=== PATIENT | female | born 1960 | race Caucasian/White ===

== ENCOUNTER 2018-12-11 09:57 | Emergency (ER) | payer BC ==
--- NOTE | 2018-12-11 10:43 | Emergency Department Record ---
History of Present Illness - General Chief Complaint: Headache Migraine Stated Complaint: HEADACHE Time Seen by Provider: 12/11/18 10:21 Source: Patient Mode of Arrival: Ambulatory Limitations: No limitations - History of Present Illness Initial Comments: The patient is here due to a one day hx of a throbbing global CASTANEDA. The onset was yesterday and the pain has been gradually worsening. Today the patient feels that her neck is stiff and she does have mild photophobia. There has been no reported confusion, falls, or fevers. The patient recently had a 3 months stay at [facility] for Pneumococcal Meningitis and was discharged on Nov 06. She was initially found in a coma and was in the ICU for an extended stay. While admitted she was diagnosed with intermittent Afib and presently is on Eliquis. MD Complaint: Headache Onset/Timin -: Days(s) Onset Description: Gradual Location: Diffuse Severity: Moderate Severity scale (1-10): 10 Quality: Throbbing Consistency: Constant Improves With: Nothing Worsens With: Light Associated Symptoms: Photophobia Treatments Prior to Arrival: Ibuprofen Treatment Prior to Arrival Comment:: 400 mg advil. - Related Data Home Medications Medication Instructions Recorded Confirmed Last Taken Apixaban [Eliquis] 5 mg PO BID 12/11/18 12/11/18 12/11/18 Metoprolol Tartrate [Lopressor] 12/11/18 12/11/18 12/11/18 Ondansetron [Zofran Odt] 12/11/18 12/11/18 Pantoprazole Sodium [Protonix] 40 mg PO DAILY 12/11/18 12/11/18 12/11/18 Sertraline HCl [Zoloft] 100 mg PO DAILY 12/11/18 12/11/18 12/11/18 Tiotropium Br/Olodaterol HCl 4 gm IH DAILY 12/11/18 12/11/18 12/11/18 [Stiolto Respimat Inhal [place]] Allergies Allergy/AdvReac Type Severity Reaction Status Date / Time Penicillins Allergy Intermediate hives Verified 12/11/18 10:04 Sulfa (Sulfonamide Allergy Intermediate hives Verified 12/11/18 10:04 Antibiotics) Travel Screening - Travel/Exposure Within Last 30 Days Have you traveled within the last 30 days?: No - Travel/Exposure Within Last Year Have you traveled outside the [place] in the last year?: No - Additonal Travel Details Have you been exposed to anyone with a communicable illness?: No - Travel Symptoms Symptom Screening: None Review of Systems Constitutional: Reports: Malaise. Denies: Chills, Fever Eyes: Denies: Eye discharge ENT: Denies: Congestion Respiratory: Denies: Cough Cardiovascular: Denies: Arrhythmia Endocrine: Reports: Fatigue Gastrointestinal: Denies: Nausea Genitourinary: Denies: Dysuria Musculoskeletal: Denies: Arthralgia Skin: Denies: Bruising Past Medical History - SOCIAL HISTORY Smoking Status: Former smoker Alcohol Use: Occasional Drug Use: None - RESPIRATORY Hx Respiratory Disorders: Yes Hx COPD: Yes - CARDIOVASCULAR Hx Cardio Disorders: Yes Hx Hypertension: Yes - NEURO Hx Neuro Disorders: Yes Comment:: Recent meningitis - GI Hx GI Disorders: Yes Hx Reflux: Yes - Hx Genitourinary Disorders: No - ENDOCRINE Hx Endocrine Disorders: Yes Hx Diabetes: Yes - MUSCULOSKELETAL Hx Musculoskeletal Disorders: No - PSYCH Hx Psych Problems: No - HEMATOLOGY/ONCOLOGY Hx Hematology/Oncology Disorders: No Family Medical History Any Significant Family History?: Yes Hx Cancer: Father Hx Resp Disorders: Mother Physical Exam - General General Appearance: Alert, Oriented x3, Cooperative, No acute distress - Head Head exam: Atraumatic, Normocephalic, Normal inspection - Eye Eye exam: Normal appearance, PERRL, EOMI - ENT Throat exam: Normal inspection. negative: Tonsillar erythema, Tonsillar exudate - Neck Neck exam: Normal inspection, Full ROM. negative: Lymphadenopathy, Meningismus (There is a neg Kerng's and Brudsinski's exams.), Tenderness - Respiratory Respiratory exam: Normal lung sounds bilaterally. negative: Respiratory distress - Cardiovascular Cardiovascular Exam: Regular rate, Normal rhythm, Normal heart sounds - GI/Abdominal GI/Abdominal exam: Soft, Normal bowel sounds. negative: Tenderness - Extremities Extremities exam: Normal inspection, Full ROM, Normal capillary refill. negative: Tenderness - Neurological Neurological exam: Alert, Normal gait. negative: Abnormal gait, Motor sensory deficit - Psychiatric Psychiatric exam: Flat affect. negative: Anxious - Skin Skin exam: negative: Rash Course Vital Signs 12/11/18 10:11 Temperature 98.1 F Pulse Rate 63 Respiratory 20 Rate Blood Pressure 157/63 Pulse Ox 98 - Reevaluation(s) Reevaluation #1: The patient is doing better at this time and states her pain is improved. I did discuss the issues with her care and the fact she needs an LP to R/O meningitis but due to taking Eliquis we are not able to perform that test. Due to her recent bout of Strep Meningitis I did recommend hospital admission for IV Abx's and holding the blood thinner and having the LP in 1-2 days. The patient agrees to that plan and would like to go back to [facility]. I then did discuss the case with Dr. Jennings at [facility] and she does accept the patient for admission. 12/11/18 12:20 Medical Decision Making - Data Complexity MDM Data: EKG Ordered and/or Reviewed - Lab Data Result diagrams: 12/11/18 10:50 12/11/18 10:50 - EKG Data -: EKG Interpreted by Me EKG: No Acute Changes (Prolonged QT interval. Neg for ischemic changes.) Disposition Disposition: Transfer Clinical Impression: Headache Qualifiers: Headache type: unspecified Headache chronicity pattern: acute headache Intractability: not intractable Qualified Code(s): R51 - Headache Disposition: Acute Care Hospital Transfer Transfer To: [facility] Reason For Transfer: Neurology Accepting Physician: Dick Time Discussed w/Accepting Physician: 12:23 Condition: (2) Stable Forms: Patient Portal Access Time of Disposition: 12:23 Quality - Quality Measures Quality Measures: N/A - Blood Pressure Screening View Details: Yes Does Patient Have Any of the Following: No Blood Pressure Classification: Hypertensive Reading Systolic Measurement: 157 Diastolic Measurement: 63 Screening for High Blood Pressure: < First Hypertensive BP, F/U Documented > [ G8950] First Hypertensive Follow-up Interventions: Referral to alternative/primary care provider.
[2018-12-11] MEDS ORDERED: ACETAMINOPHEN 1,000 MG/100 ML BTL IVPB ONE (11:02)
[2018-12-11 11:08] LABS: BASO % 0.9 % (0-6); GRAN % 50.5 % (47-80); HEMATOCRIT 34.3 % (35.0-47.0); HEMOGLOBIN 11.1 gm/dl (11.6-16.0); LYMPH % 40.1 % (16-45); MEAN CELL VOLUME 83.9 fl (81-97); MEAN CORPUSCULAR HEMOGLOBIN 27.1 pg (27-33); MEAN CORPUSCULAR HGB CONC 32.4 g/dl (32-36); MEAN PLATELET VOLUME 10.7 fl (7.4-10.4); MONO % 7.5 % (0-9); PLATELET COUNT 232 K/uL (130-400); RED BLOOD COUNT 4.09 M/uL (3.80-5.40); WHITE BLOOD COUNT W/O DIFF 8.7 K/uL (4.2-12.2)
[2018-12-11 11:18] LABS: BLOOD UREA NITROGEN 11 mg/dL (8-23)
[2018-12-11 11:19] LABS: CREATININE 0.4 mg/dL (0.5-0.9); EST GLOMERULAR FILTRATION RATE > 60 mL/min; TOTAL PROTEIN 6.8 g/dL (6.6-8.7)
[2018-12-11 11:20] LABS: INR 1.1; PARTIAL THROMBOPLASTIN TIME 30.2 SECONDS (24.5-39.1); PROTHROMBIN TIME (PATIENT) 10.6 SECONDS (9.5-12.1)
[2018-12-11 11:21] LABS: GLUCOSE,RANDOM 106 mg/dL (74-109)
[2018-12-11 11:24] LABS: ALBUMIN 4.5 g/dL (4.0-5.0); ALKALINE PHOSPHATASE 53 U/L (35-104); ALT/SGPT 13 U/L (<33); AST/SGOT 14 U/L (10.0-35.0)
[2018-12-11] MEDS ORDERED: POTASSIUM CHLORIDE 20 MEQ TABLET PO ONE (11:26)
[2018-12-11 11:45] LABS: C-REACTIVE PROTEIN 0.08 mg/dL (<0.5)
[2018-12-11] MEDS ORDERED: CEFTRIAXONE SODIUM 2 GM in 0.9 % SODIUM CHLORIDE 100ML 100 ML IVPB ONE (12:18)
[2018-12-11] MEDS ORDERED: DEXAMETHASONE SOD PHOSPHATE 10MG/ML VIAL IVP ONE (12:18)
--- NOTE | 2018-12-13 06:49 | CT SCAN REPORT ---
DATE: 12/11/2018. EXAM: CT OF THE BRAIN WITHOUT CONTRAST. HISTORY: Headache. TECHNIQUE: Sequential axial images were obtained from the foramen magna to the vertex without contrast administration. FINDINGS: Brain volume is normal. No large territorial infarct, hemorrhage, mass effect, or midline shift. No extra-axial fluid collection. The orbits, paranasal sinuses, and mastoid air cells are normal. No depressed skull fracture. IMPRESSION: NO ACUTE INTRACRANIAL ABNORMALITIES APPRECIATED. Job Number: [id number] MTDD
--- NOTE | 2018-12-13 06:51 | RADIOLOGY REPORT ---
DATE: 12/11/2018. EXAM: TWO-VIEW CHEST. HISTORY: Difficulty breathing. TECHNIQUE: Frontal and lateral views of the chest were performed. FINDINGS: Heart size is upper limits of normal. No pulmonary vascular congestion. No infiltrate or pleural effusion. The osseus structures are normal. IMPRESSION: HEART SIZE IS UPPER LIMITS OF NORMAL. NO ACUTE PROCESS. Job Number: [id number] MTDD
== END 2018-12-11 15:28 | disposition short-term general hospital (02) ==
LOC: ER 09:57
DX: R51 Headache (principal); M43.6 Torticollis; H53.149 Visual discomfort, unspecified; I10 Essential (primary) hypertension; I48.91 Unspecified atrial fibrillation; Z79.01 Long term (current) use of anticoagulants; E11.9 Type 2 diabetes mellitus without complications; Z79.84 Long term (current) use of oral hypoglycemic drugs; Z87.891 Personal history of nicotine dependence
CPT/HCPCS: 99285 ×2; 96365; 96366; 96375; 85025; 85730; 85610; 86140; 80053; 84145; 71046; 70450; 93005; 93010; J1100

== ENCOUNTER 2018-12-21 00:08 | Emergency (ER) | payer BC ==
[2018-12-21] MEDS ORDERED: ONDANSETRON HCL IV 4 MG/2 ML VIAL IVP ONE (00:14)
[2018-12-21] MEDS ORDERED: FUROSEMIDE IV 40MG/4ML VIAL IVP ONE (00:16)
[2018-12-21 00:30] LABS: BLOOD UREA NITROGEN 16 mg/dL (8-23); CREATININE 0.7 mg/dL (0.5-0.9); EST GLOMERULAR FILTRATION RATE > 60 mL/min; TOTAL PROTEIN 7.2 g/dL (6.6-8.7)
[2018-12-21 00:32] LABS: GLUCOSE,RANDOM 142 mg/dL (74-109)
[2018-12-21 00:35] LABS: ALB/GLOB RATIO 1.5 (1.1-1.8); ALBUMIN 4.3 g/dL (4.0-5.0); ALKALINE PHOSPHATASE 64 U/L (35-104); ALT/SGPT 19 U/L (<33); AST/SGOT 22 U/L (10.0-35.0); CREATINE PHOSPHOKINASE 79 U/L (26-192)
[2018-12-21 00:37] LABS: CKMB 1.5 ng/mL (<3.77)
[2018-12-21 00:45] LABS: HEMATOCRIT 41.6 % (35.0-47.0); HEMOGLOBIN 12.6 gm/dl (11.6-16.0); MEAN CELL VOLUME 90.4 fl (81-97); MEAN CORPUSCULAR HEMOGLOBIN 27.4 pg (27-33); MEAN CORPUSCULAR HGB CONC 30.3 g/dl (32-36); MEAN PLATELET VOLUME 10.8 fl (7.4-10.4); PLATELET COUNT 321 K/uL (130-400); RED CELL DISTRIBUTION WIDTH 14.9 % (11.5-14.5); WHITE BLOOD COUNT W/O DIFF 27.8 K/uL (4.2-12.2)
[2018-12-21 00:58] LABS: INR 1.1; PARTIAL THROMBOPLASTIN TIME 26.7 SECONDS (24.5-39.1); PROTHROMBIN TIME (PATIENT) 10.9 SECONDS (9.5-12.1)
--- NOTE | 2018-12-21 00:58 | Emergency Department Record ---
History of Present Illness - General Chief Complaint: Shortness of breath Stated Complaint: PATRICIA Time Seen by Provider: 12/21/18 00:14 Source: Family Mode of Arrival: Ambulatory Limitations: No limitations - History of Present Illness Initial Comments: The patient presented with severe PATRICIA for the last 2 day which got worse in the last few hours. The patient has a hx of an extended stay at [facility] for Meningitis which ended 6 weeks ago. There is no recent hx of cough, fever, or pain. MD Complaint: Shortness of breath Onset/Timin -: Days(s) - Related Data Allergies Allergy/AdvReac Type Severity Reaction Status Date / Time Penicillins Allergy Intermediate hives Verified 12/11/18 10:04 Sulfa (Sulfonamide Allergy Intermediate hives Verified 12/11/18 10:04 Antibiotics) Review of Systems ROS unobtainable: Due to endotracheal tube, Due to mental status Past Medical History - SOCIAL HISTORY Smoking Status: Former smoker Drug Use: None - RESPIRATORY Hx Respiratory Disorders: Yes Hx COPD: Yes - CARDIOVASCULAR Hx Cardio Disorders: Yes Hx Hypertension: Yes - NEURO Hx Neuro Disorders: Yes Comment:: Recent meningitis - GI Hx GI Disorders: Yes Hx Reflux: Yes - Hx Genitourinary Disorders: No - ENDOCRINE Hx Endocrine Disorders: Yes Hx Diabetes: Yes - MUSCULOSKELETAL Hx Musculoskeletal Disorders: No - PSYCH Hx Psych Problems: No - HEMATOLOGY/ONCOLOGY Hx Hematology/Oncology Disorders: No Family Medical History Hx Cancer: Father Hx Resp Disorders: Mother Physical Exam - General General Appearance: Severe distress (due to PATRICIA.) Limitations: Altered mental status - Head Head exam: Atraumatic - Eye Eye exam: Normal appearance, PERRL - Neck Neck exam: Normal inspection - Respiratory Respiratory exam: Rales (bilaterally.) - Cardiovascular Cardiovascular Exam: Tachycardia - GI/Abdominal GI/Abdominal exam: Soft. negative: Mass, Tenderness - Extremities Extremities exam: Normal inspection, Full ROM, Normal capillary refill, Other ( The extremities are mottled.). negative: Tenderness - Neurological Neurological exam: negative: Alert, Motor sensory deficit (The patient is moving all 4 extremities spontaneously. ) - Skin Skin exam: negative: Rash Course - Reevaluation(s) Reevaluation #1: The patient was intubated due to respiratory failure. She did have a R groin Central line placed without difficulty. The intubation was successful and the patient's O2 saturations did improved. She was never hypoxic for an extended period of time and had sats in the high 80's prior to intubation. 12/21/18 01:16 Reevaluation #2: The patient is doing well at this time. She did have a short period of VT which did convert with AMiodarone. Presently her vitals are stable. I did discuss the case with Dr. Carlisle at [facility] and she did accept the patient for an ICU admission. I also have discussed the issues with the multiple times and he is aware of the transfer to [facility]. 12/21/18 01:40 Procedures - Central Line Placement Femoral (R) Consent Obtained: Emergent situation Time Out Performed: Yes Patient Placed on Monitor/Pulse Ox: Yes MD Prep: Gloves Central Line Prep: Chlorhexidine scrub, Povidone-Iodine 1% Local Anesthesia Used: Lidocaine 1% Ultrasound Used for Placement: No Central Line Lumen Inserted: Triple Bloods Obtained for Lab: Yes Central Line Position: Good blood return Dressing Applied: Tegaderm Patient Tolerated Procedure: Good Complications: None - Intubation Date: 12/21/18 Time: 01:00 Sedative: Versed Mg Given: 5 Paralytic: Succinylcholine Mg Given: 120 Laryngoscope: Mehnaz Size: 4 ET Tube Size: 7.5 ET Tube Uncuffed: Yes Tube Secured Depth (cm): 23 Tube Secured Location: Teeth Tube Placement Confirmation: Confirmation by capnometry Patient Tolerated Procedure: Good Intubation Complications: None Medical Decision Making - Data Complexity MDM Data: Labs Ordered and/or Reviewed, X-Ray Ordered and/or Reviewed, EKG Ordered and/or Reviewed - Lab Data Result diagrams: 12/21/18 00:45 12/21/18 00:42 Lab Results 12/21/18 12/21/18 Range/Units 00:42 00:45 WBC 27.8 H* (4.2-12.2) K/uL RBC 4.60 (3.80-5.40) M/uL Hgb 12.6 (11.6-16.0) gm/dl Hct 41.6 (35.0-47.0) % MCV 90.4 (81-97) fl MCH 27.4 (27-33) pg MCHC 30.3 L (32-36) g/dl RDW 14.9 H (11.5-14.5) % Plt Count 321 (130-400) K/uL MPV 10.8 H (7.4-10.4) fl Neutrophils % 30.0 L (47-80) % Band Neutrophils % 0.0 (0-5) % Eosinophils % Not Reportable Basophils % Not Reportable Lymphocytes 65.0 H (16-45) % Monocytes 5.0 (0-9) % Basophils 0.0 (0-6) % Eosinophil Count 0.0 (0-6) % Sodium 136 (136-145) mmol/L Potassium 4.6 H (3.4-4.5) mmol/L Chloride 101 (98-107) mmol/L Carbon Dioxide 17.0 L (22-29) mmol/L Anion Gap 18.0 H (7-16) BUN 16 (8-23) mg/dL Creatinine 0.7 (0.5-0.9) mg/dL Estimated GFR > 60 mL/min Random Glucose 142 H (74-109) mg/dL Calcium 9.9 (8.8-10.2) mg/dL Total Bilirubin 0.40 (0.2-1.0) mg/dL AST 22 (10.0-35.0) U/L ALT 19 (<33) U/L Alkaline Phosphatase 64 (35-104) U/L Creatine Kinase 79 (26-192) U/L CK-MB (CK-2) 1.5 (<3.77) ng/mL Troponin T < 0.010 (0-0.010) ng/mL Total Protein 7.2 (6.6-8.7) g/dL Albumin 4.3 (4.0-5.0) g/dL Globulin 2.9 (1.4-4.8) gm/dL Albumin/Globulin Ratio 1.5 (1.1-1.8) - EKG Data -: EKG Interpreted by Mt EKG: Abnormal EKG (VT.) - Radiology Data Radiology results: Image reviewed (CXR: Pulmonary edema with good tube placement.) Critical Care Time Critical Care Time: Yes Total Critical Care Time: 90 Disposition Disposition: Transfer Clinical Impression: Respiratory failure Qualifiers: Chronicity: acute Respiratory failure complication: unspecified whether with hypoxia or hypercapnia Qualified Code(s): J96.00 - Acute respiratory failure, unspecified whether with hypoxia or hypercapnia Disposition: [facility] Transfer Transfer To: [facility] ICU Reason For Transfer: Intubation. Accepting Physician: Melvin. Time Discussed w/Accepting Physician: 02:49 Condition: (2) Stable Forms: Patient Portal Access Time of Disposition: :49 Quality - Quality Measures Quality Measures: N/A - Blood Pressure Screening View Details: Yes Does Patient Have Any of the Following: No Blood Pressure Classification: Pre-Hypertensive BP Reading Systolic Measurement: 132 Diastolic Measurement: 65 Screening for High Blood Pressure: < Pre-Hypertensive BP, F/U Documented > [ G8950] Pre-Hypertensive Follow-up Interventions: Referral to alternative/primary care provider.
[2018-12-21] MEDS ORDERED: AMIODARONE 150MG/100ML BOLUS 150 MG/100 ML ML IV ONE (01:07)
[2018-12-21] MEDS ORDERED: AMIODARONE 360MG/200ML MAINT 360 MG/200 ML ML IV ONE (01:07)
[2018-12-21 01:14] LABS: ARTERIAL BLD GAS O2 SATURATION 83.5 % (95-98); ARTERIAL BLOOD GAS BASE EXCESS -17.2 mmol/L (-2 - 3); ARTERIAL BLOOD GAS HCO3 12.5 mmol/L (18-23); ARTERIAL BLOOD GAS PCO2 46.9 mmHg (35-48); ARTERIAL BLOOD GAS pH 7.06 (7.35-7.45); CARBOXYHEMOGLOBIN 1.4 % (0-1.5); O2 HEMOGLOBIN 82.5 % vol (94-99); TOTAL HEMOGLOBIN 10.8 g/dl (11.6-16)
[2018-12-21 01:21] LABS: URINE APPEARANCE CLEAR; URINE BILIRUBIN NEGATIVE (NEGATIVE); URINE BLOOD NEGATIVE (NEGATIVE); URINE COLOR YELLOW; URINE GLUCOSE (UA) NEGATIVE (NEGATIVE); URINE KETONE NEGATIVE (NEGATIVE); URINE LEUKOCYTE ESTERASE NEGATIVE (NEGATIVE); URINE NITRITE NEGATIVE (NEGATIVE); URINE UROBILINOGEN 0.2 E.U./dL (0.20 - 1.00)
[2018-12-21] MEDS ORDERED: LORAZEPAM 2 MG/ML VIAL IV ONE (01:33)
[2018-12-21 01:37] LABS: LACTIC ACID 11.4 mmol/L (0.5-2.2)
[2018-12-21] MEDS ORDERED: MIDAZOLAM HCL 2MG/2ML VIAL IV ONE ×3 (02:34→03:27)
[2018-12-21] MEDS ORDERED: FUROSEMIDE IV 20MG/2ML VIAL IVP ONE (03:27)
[2018-12-21] MEDS ORDERED: ROCURONIUM BROMIDE 50MG/5ML VIAL IV ONE ×2 (03:28)
[2018-12-21] MEDS ORDERED: SUCCINYLCHOLINE 20 MG/ML 10ML IVP ONE (03:28)
--- NOTE | 2018-12-24 07:29 | RADIOLOGY REPORT ---
EXAM: PORTABLE CHEST HISTORY: DIFFICULTY BREATHING. TECHNIQUE: Portable AP view of the chest was obtained. Comparison: Chest radiograph 12/11/18. FINDINGS: Endotracheal tube tip approximately 3.3 cm above the randi. The cardiac silhouette appears enlarged. There is widening of the mediastinum which was not appreciated on comparison study, The pulmonary vasculature is indistinct. Diffuse interstitial and alveolar pulmonary opacities which are new from prior. No definable pleural fluid collection or visible pneumothorax. IMPRESSION: 1. WIDENED APPEARANCE OF THE MEDIASTINUM WHICH HAS INCREASED FROM 12/11/18 COMPARISON RADIOGRAPHS. RECOMMEND FOLLOW-UP WITH CT ANGIOGRAM OF THE CHEST TO EXCLUDE THORACIC AORTIC PATHOLOGY. 2. DIFFUSE BILATERAL PULMONARY OPACITIES, NEW FROM PRIOR STUDY. DIFFERENTIAL INCLUDES PULMONARY EDEMA OR MULTIFOCAL PNEUMONIA. FINDINGS WERE DISCUSSED WITH EMERGENCY DEPARTMENT PHYSICIAN DR. ASIF AT 9:45 A.M. ON 12/21/18. PATIENT HAD ALREADY BEEN TRANSFERRED AT TIME OF THIS DICTATION. JOB NUMBER: [id number] MTDD
== END 2018-12-21 02:45 | disposition short-term general hospital (02) ==
LOC: ER 00:08
DX: J96.00 Acute respiratory failure, unspecified whether with hypoxia or hypercapnia (principal); J44.9 Chronic obstructive pulmonary disease, unspecified; I10 Essential (primary) hypertension; E11.9 Type 2 diabetes mellitus without complications; Z79.84 Long term (current) use of oral hypoglycemic drugs; Z87.891 Personal history of nicotine dependence
CPT/HCPCS: 31500; 36556; 36600; 71045; 80053; 81003; 82375; 82550; 82553; 82803; 83605; 83880; 84145; 84484; 85027; 85379; 85610; 85730; 93005; 93010; 94002; 94660; 96374; 96375; 96376; 99291; 99292; J0330; J1940

== ENCOUNTER 2019-03-28 21:05 | Emergency (ER) | payer BC ==
[2019-03-28] MEDS ORDERED: ONDANSETRON HCL IV 4 MG/2 ML VIAL IVP ONE (21:13)
[2019-03-28] MEDS ORDERED: FENTANYL PF 100MCG/2ML VIAL IVP ONE (21:13)
[2019-03-28] MEDS ORDERED: 0.9 % SODIUM CHLORIDE 1000ML 500 ML IV SCH (21:15)
--- NOTE | 2019-03-28 21:19 | Emergency Department Record ---
History of Present Illness - General Chief Complaint: Fall Injury Stated Complaint: CHEST PAIN Time Seen by Provider: 03/28/19 21:12 Source: Patient Mode of Arrival: Ambulatory Limitations: No limitations - History of Present Illness Initial Comments: 58 yo female presents to ED for evaluation following a [id number] just prior to arrival resulting in left lower rib pain. Patient reports that she is s/p CABG and valve replacement 6 weeks ago, takes Eliquis following valve replacement. Patient reports pain with deep inspiration to the left lower ribs, denies abdominal pain on examination. Patient denies injury to the head or neck on examination, denies any extremity injury on examination. MD Complaint: Fall Onset/Timin -: Minutes(s) Fall From: Standing When Fall Occurred: Just prior to arrival Fall Witnessed: Yes, by family Place Fall Occurred: Street Loss of Consciousness: None Prolonged Down Time?: No Symptoms Prior to Fall: None Location: Chest Severity: Moderate Quality: Aching - Yung Coma Scale Eye Response: (4) Open spontaneously Motor Response: (6) Obeys commands Verbal Response: (5) Oriented Yung Total: 15 - Related Data Home Medications Medication Instructions Recorded Confirmed Last Taken Amiodarone HCl [Pacerone] 200 mg PO BID 03/28/19 03/28/19 03/28/19 Ferrous Sulfate, Dried [Iron] 160 mg PO DAILY 03/28/19 03/28/19 03/28/19 Gabapentin 300 mg PO TID 03/28/19 03/28/19 03/28/19 Hydrocodone/APAP 5/325Mg [[place] 1 each PO Q4H 03/28/19 03/28/19 Unknown 5Mg/325Mg] Magnesium Oxide [Magnesium] 1 cap PO DAILY 03/28/19 03/28/19 03/28/19 Previous Rx's Medication Instructions Recorded Hydrocodone/Acetaminophen [[place] 1 each PO Q6H PRN #10 tablet 03/28/19 7.5-325 Tablet] Allergies Allergy/AdvReac Type Severity Reaction Status Date / Time Penicillins Allergy Intermediate hives Verified 03/28/19 21:12 Sulfa (Sulfonamide Allergy Intermediate hives Verified 03/28/19 21:12 Antibiotics) Review of Systems Constitutional: Denies: Chills, Fever, Malaise, Night sweats Eyes: Denies: Eye discharge, Eye pain ENT: Denies: Congestion, Ear pain, Epistaxis Respiratory: Denies: Cough, Dyspnea Cardiovascular: Reports: Chest pain (Left lower rib pain). Denies: Dyspnea on exertion, Edema, Palpitations Endocrine: Denies: Fatigue, Heat or cold intolerance Gastrointestinal: Denies: Abdominal pain, Nausea, Vomiting Genitourinary: Denies: Incontinence, Retention Musculoskeletal: Denies: Arthralgia, Back pain Skin: Denies: Bruising, Change in color Neurological: Denies: Abnormal gait, Confusion, Headache, Seizure Psychiatric: Denies: Anxiety Hematological/Lymphatic: Reports: Easy bleeding, Easy bruising. Denies: Anemia, Blood Clots Past Medical History - SOCIAL HISTORY Smoking Status: Former smoker Drug Use: None - RESPIRATORY Hx Respiratory Disorders: Yes Hx COPD: Yes - CARDIOVASCULAR Hx Cardio Disorders: Yes Hx Hypertension: Yes - NEURO Hx Neuro Disorders: Yes Comment:: Recent meningitis - GI Hx GI Disorders: Yes Hx Reflux: Yes - Hx Genitourinary Disorders: No - ENDOCRINE Hx Endocrine Disorders: Yes Hx Diabetes: Yes - MUSCULOSKELETAL Hx Musculoskeletal Disorders: No - PSYCH Hx Psych Problems: No - HEMATOLOGY/ONCOLOGY Hx Hematology/Oncology Disorders: No Family Medical History Hx Cancer: Father Hx Resp Disorders: Mother Physical Exam - General General Appearance: Alert, Oriented x3, Cooperative, Moderate distress (Splinting with inspiration due to pain) Limitations: No limitations - Head Head exam: Atraumatic, Normocephalic, Normal inspection Head exam detail: negative: Abrasion, Contusion, Ferguson's sign, General tenderness, Hematoma, Laceration - Eye Eye exam: Normal appearance. negative: Conjunctival injection, Periorbital swelling, Periorbital tenderness, Scleral icterus - ENT Ear exam: negative: Auricular hematoma, Auricular trauma Nasal Exam: negative: Active bleeding, Discharge, Dried blood, Foreign body Mouth exam: negative: Drooling, Laceration, Muffled voice, Tongue elevation - Neck Neck exam: Normal inspection. negative: Meningismus, Tenderness - Respiratory Respiratory exam: Normal lung sounds bilaterally, Chest wall tenderness (Left anterior-lateral lower ribs). negative: Rales, Respiratory distress, Rhonchi, Stridor - Cardiovascular Cardiovascular Exam: Regular rate, Normal rhythm, Normal heart sounds - GI/Abdominal GI/Abdominal exam: Soft. negative: Rebound, Rigid, Tenderness - Rectal Rectal exam: Deferred - exam: Deferred - Extremities Extremities exam: Normal inspection. negative: Pedal edema, Tenderness - Back Back exam: Denies: CVA tenderness (R), CVA tenderness (L) - Neurological Neurological exam: Alert, Normal gait, Oriented X3 - Psychiatric Psychiatric exam: Normal affect, Normal mood - Skin Skin exam: Normal color. negative: Abrasion Type of lesion: negative: abrasion Course - Reevaluation(s) Reevaluation #1: 03/28/19 21:51 Patient was seen and examined. Patient and SO who witnessed the patient's fall deny any injury to the head/neck. Patient denies headache symptoms, discussed imaging of the head/neck patient declined. Reevaluation #2: 03/28/19 22:12 Laboratory studies were reviewed and are grossly unremarkable for an acute process. Reevaluation #3: 03/28/19 23:49 CT Chest: No evidence for traumatic injury in the chest Patient was updated on all results, reports improvement in her pain symptoms as well. recommended use of her IS given to her following her heart surgery to prevent CAP. Will discharge home with [place] as needed for her pain symptoms as well. Patient appears stable for discharge at this time. Medical Decision Making - Lab Data Result diagrams: 03/28/19 21:35 03/28/19 21:35 Disposition Disposition: Discharge Clinical Impression: Chest wall contusion Qualifiers: Encounter type: initial encounter Laterality: left Qualified Code(s): S20.212A - Contusion of left front wall of thorax, initial encounter Disposition: Home, Self-Care Condition: (2) Stable Instructions: Chest Wall Pain (ED) Additional Instructions: Return to ED if your symptoms worsen or if you have any concerns. [place] as directed. Incentive Spirometry as directed. Follow-up with your family doctor in 3-5 days as directed. Prescriptions: Hydrocodone/Acetaminophen [[place] 7.5-325 Tablet] 1 each PO Q6H PRN #10 tablet PRN Reason: Pain - Mod To Severe (5-10) Forms: Patient Portal Access Time of Disposition: 23:52 Quality - Quality Measures Quality Measures: N/A - Blood Pressure Screening Does Patient Have Any of the Following: No Blood Pressure Classification: Hypertensive Reading Systolic Measurement: 182 Diastolic Measurement: 121 Screening for High Blood Pressure: < First Hypertensive BP, F/U Documented > [G8950] First Hypertensive Follow-up Interventions: Referral to alternative/primary care provider.
[2019-03-28 21:46] LABS: ABSOLUTE NEUTROPHIL COUNT 3.76; BASO % 1.1 % (0-6); GRAN % 46.4 % (47-80); HEMATOCRIT 34.7 % (35.0-47.0); HEMOGLOBIN 10.6 gm/dl (11.6-16.0); LYMPH % 39.9 % (16-45); MEAN CELL VOLUME 90.1 fl (81-97); MEAN CORPUSCULAR HEMOGLOBIN 27.5 pg (27-33); MEAN CORPUSCULAR HGB CONC 30.5 g/dl (32-36); MEAN PLATELET VOLUME 10.5 fl (7.4-10.4); MONO % 8.6 % (0-9); PLATELET COUNT 193 K/uL (130-400); RED BLOOD COUNT 3.85 M/uL (3.80-5.40); RED CELL DISTRIBUTION WIDTH 16.1 % (11.5-14.5); WHITE BLOOD COUNT W/O DIFF 8.1 K/uL (4.2-12.2)
[2019-03-28 21:55] LABS: BLOOD UREA NITROGEN 22 mg/dL (8-23); EST GLOMERULAR FILTRATION RATE > 60 mL/min
[2019-03-28 21:56] LABS: TOTAL PROTEIN 7.1 g/dL (6.6-8.7)
[2019-03-28 21:58] LABS: GLUCOSE,RANDOM 95 mg/dL (74-109)
[2019-03-28 22:00] LABS: ALB/GLOB RATIO 1.8 (1.1-1.8); ALBUMIN 4.6 g/dL (4.0-5.0); ALT/SGPT 20 U/L (<33); AST/SGOT 18 U/L (10.0-35.0)
[2019-03-28 22:01] LABS: ALKALINE PHOSPHATASE 77 U/L (35-104)
[2019-03-28] MEDS ORDERED: HYDROCODONE/APAP 7.5/325MG TABLET PO ONE (23:59)
--- NOTE | 2019-03-30 21:54 | CT SCAN REPORT ---
EXAM: CT SCAN CHEST WO CONTRAST HISTORY: LEFT LOWER RIB PAIN FOLLOWING A FALL. TECHNIQUE: CT chest without IV contrast. COMPARISON: None. FINDINGS: Moderate emphysematous change. Linear bands of scar in the periphery of the lingula and left lower lobe. Aortic valve replacement is noted. There is a small amount of anterior pericardial thickening. The median sternotomy wires are present. There is a small amount of fat stranding anterior to the sternum from recent sternotomy. Left ventricle appears enlarged. No pleural effusion or pneumothorax. No displaced rib fractures identified. IMPRESSION: 1. POSTSURGICAL CHANGES FROM RECENT STERNOTOMY. 2. NO DISPLACED RIB FRACTURES ARE IDENTIFIED. JOB NUMBER: [id number] MTDD
== END 2019-03-29 00:15 | disposition home or self-care (01) ==
LOC: ER 21:05
DX: S20.212A Contusion of left front wall of thorax, initial encounter (principal); Z79.01 Long term (current) use of anticoagulants; W01.10XA Fall on same level from slipping, tripping and stumbling with subsequent striking against unspecified object, initial encounter; Y92.410 Unspecified street and highway as the place of occurrence of the external cause; I10 Essential (primary) hypertension; Z87.891 Personal history of nicotine dependence
CPT/HCPCS: 99284 ×2; 96374; 96375; 85025; 80053; 71250; J2405; J3010

== ENCOUNTER 2019-04-09 13:40 | Emergency (ER) | payer BC ==
[2019-04-09] MEDS ORDERED: 0.9 % SODIUM CHLORIDE 500ML 500 ML IV SCH (14:30)
[2019-04-09 14:50] LABS: CREATININE 1.3 mg/dL (0.5-0.9)
[2019-04-09 14:54] LABS: PARTIAL THROMBOPLASTIN TIME 28.2 SECONDS (24.5-39.1); PROTHROMBIN TIME (PATIENT) 10.7 SECONDS (9.5-12.1)
[2019-04-09 15:02] LABS: HEMATOCRIT 38.8 % (35.0-47.0); HEMOGLOBIN 12.2 gm/dl (11.6-16.0); MEAN CELL VOLUME 88.2 fl (81-97); MEAN CORPUSCULAR HEMOGLOBIN 27.7 pg (27-33); MEAN CORPUSCULAR HGB CONC 31.4 g/dl (32-36); MEAN PLATELET VOLUME 11.2 fl (7.4-10.4); PLATELET COUNT 216 K/uL (130-400); RED CELL DISTRIBUTION WIDTH 15.5 % (11.5-14.5)
[2019-04-09] MEDS ORDERED: SPS 15 GM/60 ML PO STA (15:02)
--- NOTE | 2019-04-09 15:33 | Emergency Department Record ---
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 Pateint looks dry, Patient denies chest pain or dyspnea.No abdominal pain and no pedal edema - [place] Coma Scale Eye Response: (4) Open spontaneously Motor Response: (6) Obeys commands Verbal Response: (5) Oriented Yung Total: 15 - Related Data Previous Rx's Medication Instructions Recorded Hydrocodone/Acetaminophen [[place] 1 each PO Q6H PRN #10 tablet 03/28/19 7.5-325 Tablet] Allergies Allergy/AdvReac Type Severity Reaction Status Date / Time Penicillins Allergy Intermediate hives Verified 03/28/19 21:12 Sulfa (Sulfonamide Allergy Intermediate hives Verified 03/28/19 21:12 Antibiotics) Travel Screening - Travel/Exposure Within Last 30 Days Have you traveled within the last 30 days?: No - Travel/Exposure Within Last Year Have you traveled outside the [place] in the last year?: No - Additonal Travel Details Have you been exposed to anyone with a communicable illness?: No Review of Systems Reviewed: No additional complaints except as noted below Constitutional: Reports: As per HPI. Denies: Chills, Fever, Malaise, Night sweats, Weakness, Weight change Eyes: Reports: As per HPI. Denies: Eye discharge, Eye pain, Photophobia, Vision change ENT: Reports: As per HPI. Denies: Congestion, Dental pain, Ear pain, Epistaxis, Hearing loss, Throat pain Respiratory: Reports: As per HPI. Denies: Cough, Dyspnea, Hemoptysis, Stridor, Wheezes Cardiovascular: Reports: As per HPI. Denies: Arrhythmia, Chest pain, Dyspnea on exertion, Edema, Murmurs, Orthopnea, Palpitations, Paroxysmal nocturnal dyspnea, Rheumatic Fever, Syncope Endocrine: Reports: As per HPI. Denies: Fatigue, Heat or cold intolerance, Polydipsia, Polyuria Gastrointestinal: Reports: As per HPI. Denies: Abdominal pain, Constipation, Diarrhea, Hematemesis, Hematochezia, Melena, Nausea, Vomiting Genitourinary: Reports: As per HPI. Denies: Abnormal menses, Discharge, Dyspareunia, Dysuria, Frequency, Hematuria, Incontinence, Retention, Urgency Musculoskeletal: Reports: As per HPI. Denies: Arthralgia, Back pain, Gout, Joint swelling, Myalgia, Neck pain Skin: Reports: As per HPI. Denies: Bruising, Change in color, Change in hair/nails, Lesions, Pruritus, Rash Neurological: Reports: As per HPI. Denies: Abnormal gait, Confusion, Headache, Numbness, Paresthesias, Seizure, Tingling, Tremors, Vertigo, Weakness Psychiatric: Reports: As per HPI. Denies: Anxiety, Auditory hallucinations, Depression, Homicidal thoughts, Suicidal thoughts, Visual hallucinations Hematological/Lymphatic: Reports: As per HPI. Denies: Anemia, Blood Clots, Easy bleeding, Easy bruising, Swollen glands Past Medical History - SOCIAL HISTORY Smoking Status: Former smoker Alcohol Use: Occasional Drug Use: None - RESPIRATORY Hx Respiratory Disorders: Yes Hx COPD: Yes - CARDIOVASCULAR Hx Cardio Disorders: Yes Hx Hypertension: Yes Comment:: aortic valve replace - NEURO Hx Neuro Disorders: Yes Comment:: Recent meningitis - GI Hx GI Disorders: Yes Hx Reflux: Yes - Hx Genitourinary Disorders: No - ENDOCRINE Hx Endocrine Disorders: Yes Hx Diabetes: Yes - MUSCULOSKELETAL Hx Musculoskeletal Disorders: No - PSYCH Hx Psych Problems: No - HEMATOLOGY/ONCOLOGY Hx Hematology/Oncology Disorders: No Family Medical History Any Significant Family History?: No Hx Cancer: Father Hx Resp Disorders: Mother Physical Exam - General General Appearance: Alert, Oriented x3, Cooperative, No acute distress - Head Head exam: Normal inspection - Eye Eye exam: Normal appearance, PERRL Pupils: Normal accommodation - ENT ENT exam: Normal exam, Mucous membranes moist, Normal external ear exam, Normal orophraynx, TM's normal bilaterally Ear exam: Normal external inspection. negative: External canal tenderness Nasal Exam: Normal inspection. negative: Discharge, Sinus tenderness Mouth exam: Normal external inspection, Tongue normal Teeth exam: Normal inspection. negative: Dental caries Throat exam: Normal inspection. negative: Tonsillar erythema, Tonsillar exudate - Neck Neck exam: Normal inspection, Full ROM. negative: Tenderness - Respiratory Respiratory exam: Normal lung sounds bilaterally. negative: Respiratory distress - Cardiovascular Cardiovascular Exam: Regular rate, Normal rhythm, Normal heart sounds - GI/Abdominal GI/Abdominal exam: Soft, Normal bowel sounds. negative: Tenderness - Rectal Rectal exam: Deferred - exam: Deferred - Extremities Extremities exam: Normal inspection, Full ROM, Normal capillary refill. negative: Tenderness - Back Back exam: Reports: Normal inspection, Full ROM. Denies: Muscle spasm, Rash noted, Tenderness - Neurological Neurological exam: Alert, Normal gait, Oriented X3, Reflexes normal - Psychiatric Psychiatric exam: Normal affect, Normal mood - Skin Skin exam: Dry, Intact, Normal color, Warm Course Vital Signs 04/09/19 04/09/19 04/09/19 13:54 13:57 13:58 Temperature 97.6 F Pulse Rate 56 L Pulse Rate [ 56 L Right] Respiratory 20 19 Rate Blood Pressure 126/78 Blood Pressure 126/78 [Left Arm] Pulse Ox 96 96 04/09/19 14:59 Temperature Pulse Rate Pulse Rate [ 54 L Right] Respiratory 18 Rate Blood Pressure Blood Pressure 131/77 [Left Arm] Pulse Ox 98 - Reevaluation(s) Reevaluation #1: feeling better 04/09/19 15:45 Medical Decision Making - Data Complexity MDM Data: Labs Ordered and/or Reviewed (potassium 5.4 , bun 59 ,creat 1.3), X- Ray Ordered and/or Reviewed (chest xray no acute changes,similiar to last chest, post CABG with a new valve), EKG Ordered and/or Reviewed (EKG NSR, No acute changes) - Lab Data Result diagrams: 04/09/19 14:45 04/09/19 14:45 Lab Results 04/09/19 04/09/19 04/09/19 Range/Units 14:45 14:45 14:45 WBC 9.0 (4.2-12.2) K/uL RBC 4.40 (3.80-5.40) M/uL Hgb 12.2 (11.6-16.0) gm/dl Hct 38.8 (35.0-47.0) % MCV 88.2 (81-97) fl MCH 27.7 (27-33) pg MCHC 31.4 L (32-36) g/dl RDW 15.5 H (11.5-14.5) % Plt Count 216 (130-400) K/uL MPV 11.2 H (7.4-10.4) fl Eosinophils % Not Reportable Basophils % Not Reportable PT 10.7 (9.5-12.1) SECONDS INR 1.0 APTT 28.2 (24.5-39.1) SECONDS Sodium 140 (136-145) mmol/L Potassium 5.4 H (3.4-4.5) mmol/L Chloride 105 (98-107) mmol/L Carbon Dioxide 21.0 L (22-29) mmol/L Anion Gap 14.0 (7-16) BUN 59 H (8-23) mg/dL Creatinine 1.3 H (0.5-0.9) mg/dL Estimated GFR 44 mL/min Random Glucose 157 H (74-109) mg/dL Calcium 9.9 (8.8-10.2) mg/dL Troponin T (0-0.010) ng/mL 04/09/19 Range/Units 14:45 WBC (4.2-12.2) K/uL RBC (3.80-5.40) M/uL Hgb (11.6-16.0) gm/dl Hct (35.0-47.0) % MCV (81-97) fl MCH (27-33) pg MCHC (32-36) g/dl RDW (11.5-14.5) % Plt Count (130-400) K/uL MPV (7.4-10.4) fl Eosinophils % Basophils % PT (9.5-12.1) SECONDS INR APTT (24.5-39.1) SECONDS Sodium (136-145) mmol/L Potassium (3.4-4.5) mmol/L Chloride (98-107) mmol/L Carbon Dioxide (22-29) mmol/L Anion Gap (7-16) BUN (8-23) mg/dL Creatinine (0.5-0.9) mg/dL Estimated GFR mL/min Random Glucose (74-109) mg/dL Calcium (8.8-10.2) mg/dL Troponin T < 0.010 (0-0.010) ng/mL Disposition Clinical Impression: Dehydration, Hypokalemia Disposition: Home, Self-Care Condition: (1) Good Instructions: Dehydration (ED), Hyperkalemia (ED) Additional Instructions: stop lasix stop potassium follow up with family Dr in one week stop lisinopril for 5 days and have your Dr advise when you should restart it up Time of Disposition: 15:49 Quality - Quality Measures Quality Measures: N/A - Blood Pressure Screening Does Patient Have Any of the Following: No, Active Dx of HTN Blood Pressure Classification: Pre-Hypertensive BP Reading Systolic Measurement: 126 Diastolic Measurement: 78 Screening for High Blood Pressure: Patient Exclusion, Hx of HTN [G9744]
[2019-04-09 15:37] LABS: URINE APPEARANCE CLEAR; URINE BILIRUBIN NEGATIVE (NEGATIVE); URINE BLOOD SMALL (NEGATIVE); URINE COLOR YELLOW; URINE GLUCOSE (UA) NEGATIVE (NEGATIVE); URINE KETONE NEGATIVE (NEGATIVE); URINE LEUKOCYTE ESTERASE NEGATIVE (NEGATIVE); URINE NITRITE NEGATIVE (NEGATIVE); URINE PROTEIN NEGATIVE (NEGATIVE); URINE UROBILINOGEN 0.2 E.U./dL (0.20 - 1.00)
[2019-04-09 15:42] LABS: URINE EPITHELIAL CELLS 0 - 2 (FEW); URINE RBC 0 - 2 (NONE SEEN); URINE WBC NONE SEEN (0-2/hpf)
[2019-04-09 15:45] LABS: ABSOLUTE NEUTROPHIL COUNT 4.94
--- NOTE | 2019-04-10 10:49 | RADIOLOGY REPORT ---
EXAM: CHEST, TWO VIEWS HISTORY: ELEVATED POTASSIUM. SHORTNESS OF BREATH. TECHNIQUE: Upright PA and lateral views of the chest were obtained. Comparison: Two view chest radiographic examination dated 02/27/19. CT chest without contrast dated 03/28/19. FINDINGS: Post median sternotomy changes redemonstrated. The heart is at the upper limits of normal in size. No pulmonary venous hypertension is seen. Linear pleural and parenchymal scarring is again noted within the lower left hemithorax. No new lung consolidation, costophrenic angle blunting or pneumothorax. There are degenerative changes scattered within the visualized spine and shoulder girdles. IMPRESSION: 1. POST MEDIAN STERNOTOMY. 2. STABLE LINEAR PLEURAL AND PARENCHYMAL SCARRING IN THE LOWER LEFT HEMITHORAX. 3. NO NEW ABNORMALITY. JOB NUMBER: [id number] [facility] [facility]
== END 2019-04-09 15:58 | disposition home or self-care (01) ==
LOC: ER 13:40
DX: E86.0 Dehydration (principal); E87.6 Hypokalemia; E11.9 Type 2 diabetes mellitus without complications; I10 Essential (primary) hypertension; Z95.2 Presence of prosthetic heart valve; Z87.891 Personal history of nicotine dependence
CPT/HCPCS: 71046; 80048; 81001; 84484; 85027; 85610; 85730; 93005; 93010; 99284; J7040

== ENCOUNTER 2019-07-22 15:20 | Emergency (ER) | payer BC ==
--- NOTE | 2019-07-22 15:46 | Emergency Department Record ---
History of Present Illness - General Chief Complaint: Ankle/Foot Injury Stated Complaint: ROLLED LT ANKLE Time Seen by Provider: 07/22/19 15:42 Source: Patient Mode of Arrival: Ambulatory Limitations: No limitations - History of Present Illness Initial Comments: 59 yo female presents after mis-stepping of a curb twisting her left foot and ankle. She has ankle and mid foot pain. She denies any other injuries. No numbness or tingling. She did not hit her head. MD Complaint: Ankle injury, Foot injury Injury: Ankle: Left, Foot: Left Type of Injury: Eversion Place: Other (gas station curb) Severity: Moderate Improves With: Immobilization Worsens With: Palpation, Weight bearing Context: Walking Associated Symptoms: Able to partially bear weight - Related Data Home Medications Medication Instructions Recorded Confirmed Last Taken Aspirin [Aspir-Low] 81 mg PO DAILY 07/22/19 07/22/19 07/22/19 Metformin HCl [Metformin HCl ER] 500 mg PO BID 07/22/19 07/22/19 07/22/19 Omeprazole 10 mg PO QHS 07/22/19 07/22/19 07/22/19 Potassium Chloride 10 meq PO DAILY 07/22/19 07/22/19 07/22/19 Sertraline HCl [Zoloft] 100 mg PO DAILY 07/22/19 07/22/19 07/22/19 Allergies Allergy/AdvReac Type Severity Reaction Status Date / Time Penicillins Allergy Intermediate hives Unverified 06/27/19 08:12 Sulfa (Sulfonamide Allergy Intermediate hives Unverified 06/27/19 08:12 Antibiotics) Review of Systems Constitutional: Denies: Chills, Fever, Malaise, Weakness Eyes: Denies: Eye discharge, Eye pain, Vision change ENT: Denies: Congestion, Throat pain Respiratory: Denies: Cough Cardiovascular: Denies: Chest pain, Palpitations, Syncope Endocrine: Denies: Fatigue Gastrointestinal: Denies: Abdominal pain, Diarrhea, Nausea, Vomiting Genitourinary: Denies: Dysuria Musculoskeletal: Reports: As per HPI, Arthralgia. Denies: Myalgia, Neck pain Skin: Denies: Bruising, Change in color, Rash Neurological: Denies: Headache, Numbness, Weakness Psychiatric: Denies: Anxiety Hematological/Lymphatic: Denies: Easy bleeding, Easy bruising Past Medical History - SOCIAL HISTORY Smoking Status: Former smoker Drug Use: None - RESPIRATORY Hx Respiratory Disorders: Yes Hx COPD: Yes - CARDIOVASCULAR Hx Cardio Disorders: Yes Hx Hypertension: Yes Comment:: aortic valve replace - NEURO Hx Neuro Disorders: Yes Comment:: Recent meningitis - GI Hx GI Disorders: Yes Hx Reflux: Yes - Hx Genitourinary Disorders: No - ENDOCRINE Hx Endocrine Disorders: Yes Hx Diabetes: Yes - MUSCULOSKELETAL Hx Musculoskeletal Disorders: No - PSYCH Hx Psych Problems: No - HEMATOLOGY/ONCOLOGY Hx Hematology/Oncology Disorders: No Family Medical History Hx Cancer: Father Hx Resp Disorders: Mother Physical Exam - General General Appearance: Alert, Oriented x3, Cooperative, No acute distress Limitations: No limitations - Head Head exam: Atraumatic - Eye Eye exam: Normal appearance, PERRL. negative: Conjunctival injection - ENT ENT exam: Normal exam Ear exam: Normal external inspection Nasal Exam: Normal inspection - Neck Neck exam: Normal inspection - Cardiovascular Cardiovascular Exam: Regular rate Peripheral Pulses: 2+: Dorsalis Pedis (L) - Rectal Rectal exam: Deferred - exam: Deferred - Extremities Extremities exam: Normal inspection, Tenderness. negative: Calf tenderness (No achilles tenderness), Pedal edema Image of Feet: 1 - tenderness 2 - tenderness 3 - tenderness - Back Back exam: Reports: Full ROM. Denies: CVA tenderness (R), CVA tenderness (L), Tenderness, Vertebral tenderness, Other - Neurological Neurological exam: Alert, Oriented X3 - Psychiatric Psychiatric exam: Normal affect, Normal mood - Skin Skin exam: Dry, Intact, Normal color, Warm Course - Reevaluation(s) Reevaluation #1: 07/22/19 16:25 The XR's were reviewed. The Ankle XR is negative The Foot XR demonstrate a linear transverse lucency through the anterior aspect of the calcaneous may represent superimposition. FU CT if symptomatic. 07/22/19 16:30 The patient is tender in this area so CT ordered She will be placed in a [employer] as well for severe acute sprain vs fracture 07/22/19 17:[address] was negative for convincing fracture The patient was given weight bearing precautions and recommendation to see her doctor in the next one week if the pain is not resolving. Disposition Disposition: Discharge Clinical Impression: Sprain of foot, left Qualifiers: Encounter type: initial encounter Qualified Code(s): S93.602A - Unspecified sprain of left foot, initial encounter Ankle sprain Qualifiers: Encounter type: initial encounter Involved ligament of ankle: unspecified ligament Laterality: left Qualified Code(s): S93.402A - Sprain of unspecified ligament of left ankle, initial encounter Disposition: Home, Self-Care Condition: (1) Good Instructions: Ankle Sprain (ED), Foot Sprain (ED) Additional Instructions: Ice and elevate the foot and ankle to minimize pain or swelling Call your doctor for close follow up in a week if the pain is not resolving. Use your cane or walker for support and comfort Review the final radiology reports with your doctor at your follow up Forms: Patient Portal Access Time of Disposition: 17:45 Quality - Quality Measures Quality Measures: N/A - Blood Pressure Screening Does Patient Have Any of the Following: Active Dx of HTN Blood Pressure Classification: Hypertensive Reading Systolic Measurement: 127 Diastolic Measurement: 90 Screening for High Blood Pressure: Patient Exclusion, Hx of HTN [G9744]
--- NOTE | 2019-07-22 16:10 | RADIOLOGY REPORT ---
EXAMINATION: Left Ankle, Complete Minimum Three Views EXAM DATE: 07/22/2019 4:08 PM TECHNIQUE: AP, lateral, and oblique INDICATION: fall, turned ankle, foot COMPARISON: None ENCOUNTER: Initial FINDINGS: Normal bony architecture. No acute fracture or dislocation. Ankle mortise intact. Dorsal and plantar calcaneal spurring. IMPRESSION: No acute abnormality, follow-up MRI if symptoms persist Dictated by: Yakov Lao MD on 07/22/2019 4:08 PM. .
--- NOTE | 2019-07-22 16:18 | RADIOLOGY REPORT ---
EXAMINATION: Left Foot, Minimum Three Views EXAM DATE: 07/22/2019 4:08 PM TECHNIQUE: AP, lateral, and oblique INDICATION: fall, turned ankle, foot COMPARISON: None ENCOUNTER: Initial FINDINGS: Normal bony architecture. On the anterior view linear transverse lucency through the anterior aspect of the calcaneus may represent superimposition. Follow-up CT if patient is symptomatic in this region . Remaining bony structures are intact. Dorsal and plantar calcaneal spurring. IMPRESSION: Linear transverse lucency anterior calcaneus on AP view only may represent superimposition of shadows . Follow-up CT if patient is symptomatic in this region Dictated by: Yakov Lao MD on 07/22/2019 4:09 PM. .
--- NOTE | 2019-07-22 17:29 | CT SCAN REPORT ---
EXAMINATION: CT Lower Extremity left foot without IV Contrast EXAM DATE: 07/22/2019 5:14 PM TECHNIQUE: Standard protocol CT images were obtained through the left foot without intravenous contr ast. Sagittal and coronal images were reconstructed. INDICATION: possible calcaneal fracture COMPARISON: Radiograph of the same day ENCOUNTER: Initial FINDINGS: There is mild irregularity at the lateral aspect of the anterior calcaneus, corresponding to the find ing on radiograph. This does not appear to be a contiguous lucency, and does not have the appearance of a fracture. No definite fracture or other acute bone abnormality is seen. Mild soft tissue edema i s seen in the subcutaneous tissues overlying the area of questioned abnormality in the calcaneus, and clinical correlation for evidence of bruising or point tenderness is recommended. IMPRESSION: No definite acute fracture. If there remains clinical concern for significant injury, MRI may be usef ul to evaluate for ligament or tendon injury. NOTE: There is a follow-up recommendation in this report. Please see above. Dictated by: Jordan Spaulding MD on 07/22/2019 5:18 PM. .
== END 2019-07-22 18:06 | disposition home or self-care (01) ==
LOC: ER 15:20
DX: S93.602A Unspecified sprain of left foot, initial encounter (principal); S93.402A Sprain of unspecified ligament of left ankle, initial encounter; X50.1XXA Overexertion from prolonged static or awkward postures, initial encounter; Y92.524 Gas station as the place of occurrence of the external cause; I10 Essential (primary) hypertension; Z87.891 Personal history of nicotine dependence
CPT/HCPCS: 99284